=== PATIENT | male | born 1985 | race Caucasian/White ===

== ENCOUNTER 2020-05-01 10:45 | Observation (INO) | payer OTHER ==
[2020-05-01] MEDS ORDERED: AMLODIPINE BESYL5 MG PO (12:52)
[2020-05-01] MEDS ORDERED: ATORVASTATIN CA40 MG PO (12:53)
[2020-05-01] MEDS ORDERED: METFORMIN HCL1000 MG PO (12:53)
[2020-05-01] MEDS ORDERED: NEXIUM40 MG PO (13:00)
[2020-05-02] MEDS ORDERED: ROXICODONE TAB 55 MG GT (10:31)
== END 2020-05-02 12:47 | disposition home or self-care (01) ==
LOC: CDU 11:58 → M/S 11:58
PROVIDERS: ADMIT Surgery Trauma Surgery
PROC: 0DTJ4ZZ Resection of Appendix, Percutaneous Endoscopic Approach (ICD-10-PCS; principal; 2020-05-01 16:42)
DX: K35.33 Acute appendicitis with perforation, localized peritonitis, and gangrene, with abscess (principal); F17.210 Nicotine dependence, cigarettes, uncomplicated; I10 Essential (primary) hypertension; E78.5 Hyperlipidemia, unspecified; M54.9 Dorsalgia, unspecified; E11.9 Type 2 diabetes mellitus without complications; Z79.84 Long term (current) use of oral hypoglycemic drugs; Z79.899 Other long term (current) drug therapy; Z20.828 Contact with and (suspected) exposure to other viral communicable diseases
CPT/HCPCS: 82962; 87635; G0378; G0379; J1100; J1644; J1885; J2001; J2250; J2405; J2543; J2704; J2710; J3010; J7030; J7120

== ENCOUNTER 2022-01-28 05:03 | Observation (INO) | payer MEDICAID ==
[~2022-01-28] VITALS: Ht 162.6 cm; Wt 102.8 kg
[~2022-01-28 05:03] MED LIST: AMLODIPINE BESYL5 MG PO; ATORVASTATIN CA40 MG PO; METFORMIN HCL1000 MG PO; NEXIUM40 MG PO; ROXICODONE TAB 55 MG GT
[2022-01-28 05:42] LABS: HEMOGLOBIN 14.2 gm/dl (14.0-17.5); RED BLOOD COUNT 4.86 M/UL (4.20-5.50); WHITE BLOOD COUNT 12.4 K/UL (4.5-11.0)
[2022-01-28 06:09] LABS: BUN/CREATININE RATIO 14 (0-10)
[2022-01-28] MEDS ORDERED: TRADJENTA5 MG PO (10:46)
[2022-01-28] MEDS ORDERED: PROTONIX 40 MG40 M1 PO (10:46)
[2022-01-28] MEDS ORDERED: LISINOPRIL10 MG PO (10:46)
[2022-01-28] MEDS ORDERED: GLIPIZIDE ER10 MG PO (10:47)
[2022-01-29 00:41] LABS: RED BLOOD COUNT 4.51 M/UL (4.20-5.50); WHITE BLOOD COUNT 12.1 K/UL (4.5-11.0)
[2022-01-29 00:49] LABS: BUN/CREATININE RATIO 12 (0-10)
== END 2022-01-29 14:22 | disposition home or self-care (01) ==
LOC: ER1 05:03 → CDU 08:29 → CCU 18:51 → CDU 18:55 → PROG CARE 23:00
PROVIDERS: Family Medicine; Physician Assistant Medical; ADMIT Internal Medicine
DX: R07.89 Other chest pain (principal); I10 Essential (primary) hypertension; E78.5 Hyperlipidemia, unspecified; E11.9 Type 2 diabetes mellitus without complications; K21.9 Gastro-esophageal reflux disease without esophagitis; F17.210 Nicotine dependence, cigarettes, uncomplicated; Z90.49 Acquired absence of other specified parts of digestive tract; Z98.890 Other specified postprocedural states; Z79.84 Long term (current) use of oral hypoglycemic drugs; Z79.899 Other long term (current) drug therapy
CPT/HCPCS: ECHO; 71045; 78452; 80048; 80053; 82550; 82553; 82962; 83735; 84484; 85025; 85027; 85379; 93005; 93017; 93306; 99285; A9502; G0378; J2785